=== PATIENT | female | born 1960 | race Caucasian/White ===

== ENCOUNTER 2017-06-16 11:11 | Emergency (ER) | payer BC, SELFPAY ==
[2017-06-16 11:13] VITALS: BP 154/86; PULSE 72; RESP 18; TEMP 36.2; O2SAT 99; BMI 28.1
--- NOTE | 2017-06-16 11:24 | EKG12_ITS ---
Test Reason : DYSRHYTHMIA Blood Pressure : / mmHG Vent. Rate : 063 BPM Atrial Rate : 063 BPM P-R Int : 164 ms QRS Dur : 084 ms QT Int : 430 ms P-R-T Axes : 057 025 045 degrees QTc Int : 440 ms Normal sinus rhythm Normal ECG Confirmed by HEAVEN CHRISTIAN, ALFREDA ([id number]), fan mail editor MARCELL SR ([id number]) on 06/18/2017 1:23:56 PM Referred By: DAREK Confirmed By:ALFREDA COLLADO MD
[2017-06-16] MEDS: 0.9% Normal Saline 1,000 ML 150 ML IV (11:37)
[2017-06-16] MEDS: Ondansetron 4 MG/2 ML Vial IV (11:37)
[2017-06-16 11:58] LABS: Absolute Neutrophil Count 5.2 X10^3/uL (2.0-7.7); Basophil# 0.03 X10^3/uL; Basophil% 0.4 % (0-1); Eosinophils% 1.4 % (0-5); Hematocrit 44.1 % (37-47); Hemoglobin 15.3 g/dl (12.0-15.0); Lymphocyte % 19.2 % (19-41); Mean Corp Hgb Conc 34.7 g/gl (32-36); Mean Corpuscular Hgb 31.4 pg (27.0-32.0); Mean Corpuscular Volume 90.6 fL (81-99); Mean Platelet Vol. 9.6 fl (6.2-12.0); Monocyte# 0.57 X10^3/uL; Monocyte% 7.8 % (0-10); Neutrophil # 5.21 X10^3/uL (2.7-7.7); Neutrophil % 71.2 % (47-70); Platelet Count 342 K/mm3 (150-450); RBC Distribution Width CV 12.6 % (11.6-14.6); Red Blood Count 4.87 M/mm3 (4.2-5.4); White Blood Count 7.3 K/mm3 (4.4-11.0)
[2017-06-16 11:59] LABS: POSITIVE COUNT NO; POSITIVE DIFFERENTIAL NO; POSITIVE MORPHOLOGY NO
[2017-06-16 12:07] LABS: Anion Gap 7 (5-15); BUN 13 mg/dL (7-18); BUN/Creat Ratio 13.4 RATIO (10-20); Chloride 101 mmol/L (98-107); Creatinine, Serum 0.97 mg/dL (0.55-1.02); EST Glomerular Filtration Rate 63 mL/min (>60); Est Glom Filt Rate - Afr Amer 76 mL/min (>60); Estimated Creatinine Clearance 68.48 ml/min; Glucose 105 mg/dL (74-106); Potassium 3.5 mmol/L (3.5-5.1); Sodium Level 139 mmol/L (136-145)
--- NOTE | 2017-06-16 12:42 | RAD_ITS ---
STUDY: X-RAY - LEFT SHOULDER REASON FOR EXAM: Female, 56 years old. Status post fall and syncope one day ago. TECHNIQUE: 4 view(s) of the shoulder. COMPARISON: None. FINDINGS: There is mild degenerative arthrosis of the glenohumeral articulation. Normal acromioclavicular joint. Normal acromion. There is an enthesopathic erosion of the humeral head. The soft tissue structures are unremarkable. There is no demonstrated fracture. There is probably small granuloma in the left lung apex. RAD/Shoulder min 2 Views IMPRESSION: Degenerative arthrosis. No evidence of acute fracture or dislocation. Electronically Signed: Alvaro Longoria MD at 14:55 EDT Tel , Service support ,
--- NOTE | 2017-06-16 12:42 | CT_ITS ---
STUDY: CT ABDOMEN AND PELVIS WITH CONTRAST REASON FOR EXAM: Female, 56 years old. Blood in stool. History of tubal ligation. RADIATION DOSAGE (If Supplied By Facility): CTDIvol = ( 15.28 ) mGy, DLP = ( 923.38 ) mGycm TECHNIQUE: Transaxial images were obtained from the dome of the diaphragm to the symphysis pubis without oral contrast. 100ML ml of Isovue 300 contrast was administered. Sagittal and coronal images were reconstructed. Individualized dose optimization techniques were used for this CT. COMPARISON: None. FINDINGS: The visualized lung bases are unremarkable. The visualized portions of the heart are within normal limits. There is diffuse fatty infiltration of the liver. No focal lesion is seen. Normal gallbladder and extrahepatic biliary system. Normal spleen. Normal pancreas. Normal bilateral adrenal glands. Normal right kidney. Normal left kidney. Normal visualized stomach. Normal small intestine. There is fecal retention. There is mild thickening of the descending and sigmoid colon probably due to underdistention. No pericolonic inflammatory changes are seen. There is no evidence of acute diverticulitis. There is non-visualization of the appendix. Normal abdominal aorta. Normal inferior vena cava. Normal retroperitoneum. Normal urinary bladder. Normal abdominal wall. There are diffuse degenerative changes of the visualized lumbar spine. CT/Abdomen/Pelvis WITH Contrast IMPRESSION: Fatty infiltration of the liver. Fecal retention. Mild thickening of the descending and sigmoid colon probably due to underdistention. Otherwise no demonstrated acute process. Electronically Signed: Alvaro Longoria MD at 14:50 EDT Tel , Service support ,
--- NOTE | 2017-06-16 12:45 | ED.DCSUM_ITS ---
- ER Visit Summary Date of Service: 06/16/17 Chief Complaint: Blood in stool, nausea History of Present Illness: The patient is a 56 F reports abdominal cramping and diarrhea last night. She had a syncopal episode while straining on the toilet. She is complaining of some mild left shoulder pain from hitting the wall. Today she passed blood with a small amount of stool ?2 occasions. She has some abdominal cramping just before bowel movements, but otherwise no abdominal pain. She did eat a steak and shake last evening and is wondering if she may have food poisoning. Patient reports last colonoscopy was at age 51 and was normal at that time. Physical Examination: Vital signs are unremarkable. Head and neck examination is normal. Heart is regular rate and rhythm. Lung sounds are clear. Abdomen is soft with no tenderness on exam. Hypoactive but present bowel sounds are noted. Test Results: CBC was normal white count. Hemoglobin is concentrated at 15.3. Chemistry studies normal. EKG was obtained secondary to the reported syncope. This is sinus at 63 with no sign of ischemia. CT scan of the abdomen and pelvis with p.o. and IV contrast reveals evidence of fecal retention. There is mild thickening of the descending and sigmoid colon probably due to underdistention. There are no pericolonic inflammatory changes. Left shoulder x-rays are obtained and unremarkable per my read. Emergency Department Course and Treatment: She is given IV fluids and Zofran. On repeat evaluation she is resting comfortably. Patient has had no further bowel movement or passing any blood here in the emergency room. Test results were discussed with her and at bedside. I advised her that her symptoms may be secondary to something she ate, but typically this is treated with supportive care. Patient will continue to monitor her symptoms at home. She will return for increased bleeding, increased pain, fever, or any other concerns. Treatment Plan: [] Disposition: Discharge Impression: 1. Reported blood in stool 2. Gastroenteritis This note was generated with [facility] dictation software. It may contain incorrect words, spelling, and punctuation that were not noted in review of the chart prior to signing ED Disposition - Plan for ED Patient: Chief Complaint: GI Bleed Referrals: Pilar Christianson MD [Primary Care Provider] -
--- NOTE | 2017-06-16 14:59 | ED.DEP ---
ED Disposition - Plan for ED Patient: Disposition: Home or Assisted Living Chief Complaint: GI Bleed Instructions: ED Food Poison Or Gastroenteritis Referrals: Pilar Christianson MD [Primary Care Provider] - 1-2 Weeks
[2017-06-16 15:13] VITALS: BP 142/81; PULSE 84; RESP 18; O2SAT 99
== END 2017-06-16 15:14 | disposition home or self-care (01) ==
PROVIDERS: Emergency Provider Emergency Medicine; Family Provider Family Medicine; PCP Family Medicine
DX: K52.9 Noninfective gastroenteritis and colitis, unspecified (principal); K92.1 Melena; R55 Syncope and collapse; K59.00 Constipation, unspecified; M25.512 Pain in left shoulder; Z79.899 Other long term (current) drug therapy
CPT/HCPCS: 73030; 74177; 80048; 85025; 93005; 96361; 96374; 99283; J7030; Q9967; J2405

== ENCOUNTER → 2017-11-12 15:19 | Outpatient (CLI) | payer BC, SELFPAY | PROVIDERS: Family Provider Family Medicine; PCP Family Medicine; Visit Provider Nurse Practitioner Adult Health | DX: R19.15 Other abnormal bowel sounds (principal) | CPT/HCPCS: 74019 ==

== ENCOUNTER → 2018-03-14 09:48 | Outpatient (CLI) | payer BC, SELFPAY ==
[2018-03-14 12:46] LABS: Anion Gap 10 (5-15); BUN 12 mg/dL (7-18); BUN/Creat Ratio 11.4 RATIO (10-20); Calcium,Total 9.7 mg/dL (8.5-10.1); Chloride 103 mmol/L (98-107); Creatinine, Serum 1.05 mg/dL (0.55-1.02); EST Glomerular Filtration Rate 58 mL/min (>60); Est Glom Filt Rate - Afr Amer 70 mL/min (>60); Glucose 96 mg/dL (74-106); Potassium 4.3 mmol/L (3.5-5.1); Sodium Level 141 mmol/L (136-145)
== END ==
PROVIDERS: Family Provider Family Medicine; PCP Family Medicine; Referring Provider Family Medicine; Visit Provider Family Medicine
DX: I10 Essential (primary) hypertension (principal)
CPT/HCPCS: 36415; 80048

== ENCOUNTER → 2018-09-12 09:53 | Outpatient (CLI) | payer BC, SELFPAY ==
--- NOTE | 2018-09-12 09:57 | RAD_ITS ---
STUDY: X-RAY - RIGHT KNEE REASON FOR EXAM: Female, 57 years old. TECHNIQUE: view(s) of the knee. COMPARISON: None. FINDINGS: There is significant narrowing involving the medial compartment of the knee joint which is much worse than seen in the study also May 21, 2014. Moderate osteophyte formation noted. Minimal osteoarthritis noted in the patellofemoral joint. No joint effusion identified. RAD/Knee 4 or More Views IMPRESSION: Moderate osteoarthritis involving particularly the medial compartment Electronically Signed: Analilia Guerrero, at 12:51 EDT Tel , Service support ,
[2018-09-12 12:31] LABS: Anion Gap 4 (5-15); BUN 12 mg/dL (7-18); BUN/Creat Ratio 11.7 RATIO (10-20); Calcium,Total 9.2 mg/dL (8.5-10.1); Chloride 103 mmol/L (98-107); Creatinine, Serum 1.03 mg/dL (0.55-1.02); EST Glomerular Filtration Rate 59 mL/min (>60); Est Glom Filt Rate - Afr Amer 71 mL/min (>60); Glucose 96 mg/dL (74-106); Potassium 3.9 mmol/L (3.5-5.1); Sodium Level 137 mmol/L (136-145)
== END ==
PROVIDERS: Family Provider Family Medicine; PCP Family Medicine; Referring Provider Family Medicine; Visit Provider Family Medicine
DX: M25.561 Pain in right knee (principal); I10 Essential (primary) hypertension
CPT/HCPCS: 36415; 73564; 80048

== ENCOUNTER → 2019-03-06 15:28 | Outpatient (CLI) | payer BC, SELFPAY ==
[2019-03-06 17:51] LABS: Anion Gap 6 (5-15); BUN 7 mg/dL (7-18); BUN/Creat Ratio 7.5 RATIO (10-20); Calcium,Total 9.2 mg/dL (8.5-10.1); Chloride 98 mmol/L (98-107); Cholesterol 216 mg/dL (200); Creatinine, Serum 0.93 mg/dL (0.55-1.02); EST Glomerular Filtration Rate 66 mL/min (>60); Est Glom Filt Rate - Afr Amer 80 mL/min (>60); Glucose 91 mg/dL (74-106); High Density Lipoprotein 76 mg/dL; Potassium 3.7 mmol/L (3.5-5.1); Sodium Level 132 mmol/L (136-145); Triglycerides 81 mg/dL; Very Low Density Lipoprotein 16 mg/dL (5-40)
== END ==
PROVIDERS: Family Provider Family Medicine; PCP Family Medicine; Referring Provider Family Medicine; Visit Provider Family Medicine
DX: I10 Essential (primary) hypertension (principal)
CPT/HCPCS: 36415; 80048; 80061